=== PATIENT | female | born 1985 | race Caucasian/White ===

== ENCOUNTER 2020-02-05 18:43 | Emergency (ER) | payer OTHER, SELFPAY ==
[2020-02-05 18:48] VITALS: BP 130/86; PULSE 66; RESP 16; TEMP 36.3; O2SAT 99
--- NOTE | 2020-02-05 19:25 | PC.NURSE ---
During bedside handoff report, pt reported she was 11 weeks
--- NOTE | 2020-02-05 20:02 | ED.SKABFB ---
HPI - Skin/Abscess/Foreign Bdy General Chief complaint: Wound/Laceration Stated complaint: scalp wound Time Seen by Provider: 02/05/20 19:48 History of Present Illness HPI narrative: Painful bump to posterior scalp. Noticed it a few days ago. Getting larger. Mild pain in the left ear. Mild nausea. No fever Related Data Home Medications Medication Instructions Recorded Confirmed PNV cmb#95-ferrous fumarate-FA tablet PO 02/05/20 [] Allergies Allergy/AdvReac Type Severity Reaction Status Date / Time Sulfa (Sulfonamide Allergy Unknown Verified 02/05/20 18:52 Antibiotics) Review of Systems Review of Systems: All systems reviewed & are unremarkable except as noted in HPI and below Constitutional: Constitutional: Denies fever(s) ENT: Reports system reviewed and no additional complaints, except as documented Cardiovascular: Cardiovascular: Reports chest pain Respiratory: Respiratory: Denies dyspnea Gastrointestinal: Gastrointestinal: Reports nausea PMFSH Social History Social History Gender identity (if verbalized by the patient): Male Exam Const: General: healthy appearing, no acute distress and alert Orientation/consciousness: patient oriented x3 HENMT: Head: normal to inspection Other: 1 cm fluctuant lesion to posterior scalp. Neck: Neck: normal visual inspection and no lymphadenopathy Chest: Chest palpation & inspection: no tenderness Resp: Effort & Inspection: normal respiratory effort Auscultation: clear to auscultation bilaterally, no rales, no rhonchi and no wheezes Cardio: Jugular venous distension: no JVD Rate: regular rate Rhythm: regular rhythm Heart sounds: no murmurs GI: Inspection: non-distended GI Palp: Yes Soft to palpation and No Tenderness to palpation present (GI) Skin: General skin exam: normal color Neuro: General: patient oriented x3 and moves all extremities Speech: normal speech Extrem: General: no edema Psych: Appearance: well kempt Affect: normal affect Course Vital Signs Vital signs: Vital Signs Temperature 36.3 C L 02/05/20 18:48 Pulse Rate 66 02/05/20 18:48 Respiratory Rate 16 02/05/20 18:48 Blood Pressure 130/86 02/05/20 18:48 Pulse Oximetry 99 02/05/20 18:48 Temperature 36.3 C L 02/05/20 18:48 Pulse Rate 66 02/05/20 18:48 Respiratory Rate 16 02/05/20 18:48 Blood Pressure 130/86 02/05/20 18:48 Pulse Oximetry 99 02/05/20 18:48 Procedures Abscess I/D scalp: Local Anesthetic: none Technique: needle aspiration Amount of fluid expressed (mL): 1 Irrigation: No Packing used?: none I&D Results: Pus Discharge Plan Discharge Clinical Impression: Abscess Patient Disposition: Home, Self-Care Condition: Stable Instructions: Antibiotic Form, Abscess (ED) Prescriptions: New clindamycin HCl 300 mg capsule 300 mg PO Q8H Qty: 15 RF: 0 No Action PNV cmb#95-ferrous fumarate-FA [] 28 mg iron- 800 mcg Tablet PO RF: 0 Follow-up/Referrals: PHYSICIAN,SPACE BUYER [Primary Care Provider] - Discharge Date/Time: 02/05/20 20:41
[2020-02-05] MEDS: CLINDAMYCIN HCL 150 MG CAP 300 MG PO (20:16)
[2020-02-05] MEDS: ACETAMINOPHEN 500 MG TABLET 1000 MG (20:21)
== END 2020-02-05 20:41 | disposition home or self-care (01) ==
PROVIDERS: Emergency Provider Emergency Medicine
DX: L02.811 Cutaneous abscess of head [any part, except face] (principal)
CPT/HCPCS: 10160; 99283; A9270

== ENCOUNTER 2020-08-24 10:20 | Inpatient (IN) | payer OTHER, SELFPAY ==
[2020-08-24] VITALS (37 sets, daily range): BP systolic 112–135; BP diastolic 63–87; PULSE 70–99; RESP 16; TEMP 36.8; O2SAT 96–100; BMI 28.0
[2020-08-24] MEDS: LACTATED RINGERS 1,000 ML 125 ML IV CONT ×2 (12:53→13:35)
[2020-08-24] MEDS: AMPICILLIN 2 GM/NS 100 ML 2 GM/100 ML BAG IVPB (12:53)
--- NOTE | 2020-08-24 13:00 | WPDOBADMIT ---
Obstetrics - Admit Note Admission Note: record reviewed. Additions to the history and/or subsequent changes in the physical findings follow. 34 y/o at 39 2/7 weeks here with contractions. GBS pos. AVSS NST reactive TOCO: contractions every 3-4 min ABD soft, nontender, gravid, vertex EXT nontender Cervix 4/50/-2. AROM with clear fluid. Vertex. A: IUP at term with labor, GBS pos. P: Ampicillin. Anticipate .
--- NOTE | 2020-08-24 13:05 | WPDANESEPP ---
Anes - Eval Pre Procedure Procedure: labor epidural Date/Time: 08/24/20 13:05 Surgeon: jameson Pre Op Diagnosis: Contractions Patient Data Age: 34 Gender: F Height: Weight: Allergies Allergy/AdvReac Type Severity Reaction Status Date / Time bee venom protein (honey bee) Allergy Hives Verified 07/30/20 12:45 Sulfa (Sulfonamide Allergy Unknown Verified 07/30/20 12:44 Antibiotics) WASP VENOM Allergy Hives Uncoded 07/30/20 12:45 Home Medications Medication Instructions Recorded Confirmed Type PNV cmb#95-ferrous fumarate-FA tablet PO 02/05/20 History [] Patient hx anesthesia problems: none Family hx anesthesia problems: none PMFSH Family History Family History Father Hypertension Heart disease Hypothyroid Obesity Grandparent Hypertension Heart disease Sibling Hypertension Obesity Grandparent Cancer Hyperthyroidism Grandparent Cancer Mother Obesity Grandparent Alcoholism Social History Social History Substance use: never Gender identity (if verbalized by the patient): Male Spiritual care concerns: No Exam Day of Procedure 08/24/20 13:05 Patient weight: normal Heart: regular rate and rhythm Lungs: normal air movement Airway: Mallampati scale class 1 Neurological: alert and oriented
[2020-08-24 13:11] LABS: Basophils Percent Auto 0.2 % (0.2-1.2); Eosinophils Percent Auto 0.1 % (0-4.4); Hemoglobin 12.9 g/dL (12.0-15.0); Immature Granulocyte Absolute 0.08 K/mm3 (0.00-0.031); Immature Granulocyte Percent A 0.7 % (0-0.5); Lymphocytes Absolute Auto 1.64 K/mm3 (0.9-3.2); Lymphocytes Percent Auto 15.3 % (18.3-44.2); Mean Corpuscular HGB Conc 33.9 g/dl (32-36); Mean Corpuscular Hemoglobin 30.8 pg (26-34); Mean Corpuscular Volume 90.7 fl (80-100); Mean Platelet Volume 10.8 fl (7.4-10.4); Monocytes Absolute Auto 0.5 K/mm3 (0.1-0.6); Monocytes Percent Auto 4.9 % (2.6-8.5); Neutrophils Absolute Auto 8.4 K/mm3 (1.3-6.7); Neutrophils Percent Auto 78.8 % (45.5-73.1); Platelet Count Result 179 k/mm3 (150-375); Red Blood Count 4.19 M/mm3 (4.2-5.4); Red Cell Distribution Width 12.4 % (11.5-14.5); White Blood Count 10.7 K/mm3 (4.5-10.0)
[2020-08-24] MEDS: OXYTOCIN 30 UNITS/NS 500 ML 30 UNITS/500 ML BAG 999 UNITS IV CONT (15:06)
--- NOTE | 2020-08-24 15:21 | P.PCNOB_ITS ---
OB - Delivery Note Procedure Delivery date: 08/24/20 Procedure: Induction method: none Delivery augmentation: rupture of membranes Delivery monitor: external FHT and external uterine Route of delivery: Laceration Description: Perineal - 2nd Degree Delivery repair: vicryl (3-0) Quantitative Blood Loss (ml): 85 Anesthesia type: Epidural Disposition: PACU Complications: None Narrative: 34 y/o at 39 2/7 weeks gestation who presented to the hospital with contractions. Labor was diagnosed. She received ampicillin for GBS colonization. Amniotomy was performed with return of clear fluid. She received an epidural for pain control. Her labor progressed rapidly and her cervix dilated completely. She pushed with good effort and delivered the infant's head to the perineum, followed by the body. The nose and mouth were bulb suctioned. After a delay, the cord was clamped and cut. The infant was handed off the field. Cord blood was collected. The placenta delivered spontaneously and was grossly normal in appearance. The usual 3 vessel cord was noted. A second degree midline perineal laceration was sustained. This was reapproximated using 3 0 Vicryl in the usual layered fashion. Excellent hemostasis resulted as did excellent reapproximation of the normal anatomy. Needle and instrument counts were correct. The patient was taken to recovery room in stable condition. The went to the nursery in stable condition. I was present and scrubbed for the entire delivery. [place] [facility] Date of : 08/24/20 Time of : 15:01 Weeks of gestation at delivery: 39 Infant gender: Male Weight (pounds): 8 presentation: vertex position: Left Occiput Anterior Placenta delivery description: Spontaneous and Normal Configuration cord vessel description: 3 Vessels and Delayed Cord Clamping score one minute: 9 score five minutes: 9
--- NOTE | 2020-08-24 15:24 | P.DS_ITS ---
DS: Admitting Diagnosis Admitting Diagnosis Admitting Diagnosis: Labor GBS colonization DS: Discharge Diagnosis Discharge Diagnosis (1) (normal spontaneous vaginal delivery): Code(s): O80 - Encounter for full-term uncomplicated delivery Status: Acute (2) GBS (group B Streptococcus carrier), +RV culture, currently : Code(s): O99.820 - Streptococcus B carrier state complicating Status: Acute OB - DS: Summary OB Procedures : None OB Procedures Intrapartum: Spontaneous Vag Delivery OB Procedures: : None Time Spent with Patient Time attestation: Total time spent providing and/or coordinating discharge services: DS: Data Data Completed and Pending Labs on day of discharge: Labs from last 24 hours 08/24/20 08/24/20 08/24/20 13:04 13:04 13:04 WBC 10.7 H RBC 4.19 L Hgb 12.9 Hct 38.0 MCV 90.7 MCH 30.8 MCHC 33.9 RDW 12.4 Plt Count 179 MPV 10.8 H Immature Gran % (Auto) 0.7 H Neut % (Auto) 78.8 H Lymph % (Auto) 15.3 L [place] % (Auto) 4.9 Eos % (Auto) 0.1 Baso % (Auto) 0.2 Lymph # (Auto) 1.64 [place] # (Auto) 0.5 Eos # (Auto) 0.0 Baso # (Auto) 0.0 Abs Immat Gran (auto) 0.08 H Absolute Neuts (auto) 8.4 H Absolute Nucleated RBC 0.0 Nucleated RBC % 0.0 RPR Pending Blood Type B Positive Antibody Screen Negative Discharge Plan Discharge Attending physician on discharge: Negin Discharging Clinician: Ellis Kam Patient Disposition: Home, Self-Care Activity: pelvic rest Diet: regular Discharge Instructions: Call or return if temperature above 100.4? F, increased abdominal pain, increased vaginal bleeding or any new problems. Stand Alone Forms: General Discharge Information Follow-up/Referrals: Ellis Kam MD [Physician] - 6 Weeks Discharge Medications: New ibuprofen 600 mg tablet 600 mg PO Q6H PRN (Reason: cramps) Qty: 30 RF: 0 No Action PNV cmb#95-ferrous fumarate-FA [] 28 mg iron- 800 mcg Tablet 1 tablet PO DAILY RF: 0 Date of admission: 08/24/20 10:20 Primary Care Provider: PHYSICIAN,CREDIT OR LOANS OFFICER Admitting Provider: Ellis Kam Attending physician on admission: Ellis Kam Condition: Stable
[2020-08-24] MEDS: OXYTOCIN 30 UNITS/NS 500 ML 30 UNITS/500 ML BAG 125 UNITS IV CONT (15:47)
--- NOTE | 2020-08-24 18:28 | OBPPTRN ---
1803 Patient transferred to post room #279 via W/C. Support person present. Oriented to unit, room, information board, rooming in, admission packet and security measures. Patient verbalizes understanding.
[2020-08-24] MEDS: BENZOCAINE 20% AER SPR (*SP) 56 GM CAN 1 SPRAY TOPICAL (20:30)
[2020-08-24] MEDS: WITCH HAZEL 40 PADS 1 PAD TOPICAL (20:30)
[2020-08-24] MEDS: IBUPROFEN 600 MG TABLET PO (20:50)
[2020-08-25] MEDS: IBUPROFEN 600 MG TABLET PO ×3 (03:03→16:01)
[2020-08-25 05:10] LABS: Hematocrit 31.3 % (37.0-47.0); Hemoglobin 10.8 g/dL (12.0-15.0)
[2020-08-25 07:45] VITALS: BP 115/77; PULSE 60; RESP 18; TEMP 36.7; O2SAT 99
[2020-08-25] MEDS: MULTIVIT/MIN/PREN/FOL AC/IRON TABLET 1 TAB PO (08:46)
--- NOTE | 2020-08-25 08:57 | WPDANLDPN2 ---
Anes-Prog Note L&D Date/Time: 08/25/20 08:57 Comfortable throughout: labor and delivery Neuraxial method: epidural Epidural/Spinal procedure site: clean & non-tender Neuro status: Neuro function grossly intact. Cardiovascular status: normal Respiratory status: normal Airway patency: baseline Mental status: baseline Post-Op hydration status: normal Vital Signs: Last Vital Signs Temp 98.2 F 08/24/20 18:30 Pulse 70 08/24/20 18:30 Resp 16 08/24/20 18:30 BP 118/80 08/24/20 18:30 Pulse Ox 100 08/24/20 18:30 Pain score (VAS): 0/10 I/O: Intake & Output 08/24/20 08/25/20 08/25/20 23:59 07:59 15:59 Intake Total 1000 Output Total 100 Balance 900 Patient feedback: Patient satisfied with anesthetic care.
[2020-08-25 09:50] LABS: Rapid Plasma Reagin Non-Reactive (NonReactive)
--- NOTE | 2020-08-25 09:57 | PC.NURSE ---
Pt called me to the room and informed me that she just received a phone call from a clinic that her [id number] daughter tested positive for Covid. Pt states she was with her daughter early on 08/24 and her daughter is currently with the patient's mother. Told pt that I will inform the [employer] swim coach to get guidance for when pt goes home. Also, I called Sumeet Yun RN to inform her and to get guidance with pt's care. She stated that no changes in current Covid precautions is warranted.
--- NOTE | 2020-08-25 11:23 | PC.NURSE ---
Consulted with patient, reviewed feeding cues, frequencies, duration of feedings, feeding elimination flow sheet, and signs of adequate intake. Demonstrated stimulation techniques to wake for feeding. Assisted with to breast. Reviewed positioning/alignment, holding breast and asymmetrical latch on. was able to latch correctly. Infant nursed eagerly, with steady draws and frequent swallowing noted. Reviewed signs of a correct latch, effective nursing and suck swallow ratio. was able to maintain latch without discomfort to mother. Nipple care reviewed. Instructed mother to call out for RN assistance if she is unable to latch for feeding or she has discomfort with nursing. Instructed feeding should be initiated three hours from start of last feeding or if feeding cues are noted before. Mother voiced understanding of information shared.
--- NOTE | 2020-08-25 14:10 | PM.OBPNVD ---
OB - PN: Subj Subjective Date/time seen: 08/25/20 14:10 Narrative: Pain OK. Would like circumcision for son. OB - PN: Obj Data Labs CBC & Chem 7: 08/25/20 04:49 Labs: Laboratory Results - last 24 hr 08/24/20 08/24/20 08/25/20 13:04 13:04 04:49 Hgb 10.8 L Hct 31.3 L RPR Non-reactive Blood Type B Positive Antibody Screen Negative OB - PN A/P Plan Comments: A: PPD#1, doing well. P: Routine care. Reviewed circumcision. Exam Psych: Other: AVSS ABD soft, nontender, fundus firm EXT nontender
[2020-08-25 20:00] VITALS: BP 117/86; PULSE 62; RESP 16; TEMP 36.7; O2SAT 98
[2020-08-26] MEDS: IBUPROFEN 600 MG TABLET PO ×2 (00:37→06:44)
[2020-08-26] MEDS: MULTIVIT/MIN/PREN/FOL AC/IRON TABLET 1 TAB PO (06:44)
[2020-08-26 08:00] VITALS: BP 116/74; PULSE 66; RESP 18; TEMP 36.7; O2SAT 100
--- NOTE | 2020-08-26 08:19 | PC.NURSE ---
Mother verbalizes she is able to independently latch with appropriate positioning/alignment. She states she has minimal nipple discomfort, is feeding as required and waking to feed if needed. Infant has had 11 effective feedings in the past 24 hours, and is currently meeting outcomes for weight, output, jaundice and feeding frequencies. Mother states she feels confident to continue effective at home. Reviewed transition to breast milk, signs of adequate intake, and engorgement/relief. Instructed to call ICP if intake/output less than required. Reviewed community resources on the [facility] website and in the Mom/Baby guide. Information on outpatient services provided. Mother has no further questions at this time. Mom encouraged to call with next feeding to have latch assessed.
--- NOTE | 2020-08-26 09:28 | WPDANLDPN2 ---
Anes-Prog Note L&D Date/Time: 08/26/20 09:28 Comfortable throughout: labor and delivery Neuraxial method: epidural Epidural/Spinal procedure site: clean & non-tender Neuro status: Neuro function grossly intact. Cardiovascular status: normal Respiratory status: normal Airway patency: baseline Mental status: baseline Post-Op hydration status: normal Vital Signs: Last Vital Signs Temp 36.7 C 08/25/20 20:00 Pulse 62 08/25/20 20:00 Resp 16 08/25/20 20:00 BP 117/86 08/25/20 20:00 Pulse Ox 98 08/25/20 20:00 Pain score (VAS): 0 Patient feedback: Patient satisfied with anesthetic care.
--- NOTE | 2020-08-26 10:45 | PM.OBPNVD ---
OB - PN: Subj Subjective Date/time seen: 08/26/20 10:45 Narrative: Pain OK. Would like to go home. OB - PN: Obj Data Labs CBC & Chem 7: 08/25/20 04:49 OB - PN A/P Plan Comments: A: PPD#2, doing well. P: Home to f/u 6 weeks. Exam Psych: Other: AVSS ABD soft, nontender, fundus firm EXT nontender
== END 2020-08-26 11:59 | disposition home or self-care (01) | DRG 807 ==
LOC: ANHLDR 15:25 → ANHOB2 18:06
PROVIDERS: Admitting Provider Obstetrics & Gynecology; Visit Provider Obstetrics & Gynecology
DX: O62.3 Precipitate labor (principal); Z37.0 Single live birth; Z3A.39 39 weeks gestation of pregnancy; O99.824 Streptococcus B carrier state complicating childbirth; O70.1 Second degree perineal laceration during delivery
CPT/HCPCS: 36415; 85014; 85018; 85025; 86592; 86850; 86900; 86901; A9270; J0290; J2590; J2795; J7120

== ENCOUNTER 2024-08-21 18:50 | Emergency (ER) | payer BC, SELFPAY ==
--- NOTE | 2024-08-21 18:58 | ED_ITS ---
HPI - URI/Sore Throat General Chief Complaint: Upper Respiratory Infection Stated Complaint: Flu Symptoms Time Seen by Provider: 08/21/24 19:00 Source: patient Mode of arrival: ambulatory Limitations: no limitations History of Present Illness HPI Narrative: Cheryl is a 38-year-old female patient presenting to the clinic today with complaints of flu-like symptoms x1 day. She reports she has headache, cough, congestion, sinus drainage, and some shortness of breath on exertion. Denies any chest pain. Denies sore throat. No fevers, chills, or body aches MD elicited complaint: cough, rhinorrhea and nasal congestion Related Data Allergies Allergy/AdvReac Type Severity Reaction Status Date / Time bee venom protein (honey bee) Allergy Hives Verified 08/21/24 19:06 WASP VENOM Allergy Hives Uncoded 08/21/24 19:06 Review of Systems Review of Systems: Pertinent positives per HPI. Patient denies any fever, chills, rash, visual changes, dizziness, chest pain, palpitations, nausea, vomiting, diarrhea, constipation, abdominal pain, or any urinary issues. PMFSH Past Medical History Medical History Change in bowel habits BMI 22.0-22.9, adult Abdominal pain Family History Family History Father Hypertension Heart disease Hypothyroid Obesity Grandparent Hypertension Heart disease Sibling Hypertension Obesity Alcoholism Asthma Hypothyroid Grandparent Cancer Hyperthyroidism Grandparent Cancer Mother Obesity Grandparent Alcoholism Social History Social History Smoking status: Never smoker Alcohol intake: current Alcohol use details: rarely Substance use: never Substance use type: does not use Gender identity (if verbalized by the patient): Male Spiritual care concerns: No Comments At the time of my signature, I reviewed and agree with the nursing past medical, surgical, social, and family history. There is no relevant family history pertinent to the patient complaint. Exam Narrative: General: Well-developed, well nourished, in no apparent distress Head: Normocephalic, atraumatic Eyes: Pupils equally round and reactive to light bilaterally, EOM intact, sclera and conjunctive clear, no discharge, lids normal Ears: TMs intact and congested, ear canals clear, no drainage, grossly hearing normal. Nose: Nares patent, clear nasal discharge, mild inflammation, no sinus tenderness. Mouth: Oral pharynx without lesions or masses, good dentition, MMM. Postnasal drip Neck: Supple, trachea midline, no enlargement of anterior or posterior cervical nodes, no thyroid masses or goiter palpable. Cardio: Regular rate and rhythm, s1 and s2 normal, no murmur appreciated. Resp: Clear to auscultation bilaterally, no rhonchi, rales, wheezing or rubs Course Course Emergency Course: Portions of this record may have been created with voice recognition software. Level of Care: Express Care Visit Vital Signs Vital signs: Vital Signs Temperature 36.9 C 08/21/24 19:04 Pulse Rate 72 08/21/24 19:04 Respiratory Rate 16 08/21/24 19:04 Blood Pressure 117/82 08/21/24 19:04 Pulse Oximetry 100 08/21/24 19:04 Temperature 36.9 C 08/21/24 19:04 Pulse Rate 72 08/21/24 19:04 Respiratory Rate 16 08/21/24 19:04 Blood Pressure 117/82 08/21/24 19:04 Pulse Oximetry 100 08/21/24 19:04 Vital signs reviewed MDM - URI/Sore Throat MDM Narrative Medical decision making narrative: At the time of visit patient is resting comfortably on the exam table. Patient appears to be nontoxic. Labs: COVID and influenza testing was performed and was negative in the clinic today. Plan: I suspect patient has URI/viral syndrome. Will send in prescription for albuterol inhaler as needed for cough shortness of breath or wheeze. Supportive measures were discussed with the patient and they voiced understanding discharge instructions and agrees to treatment plan. Return precautions reviewed Differential Diagnosis Differential diagnosis: Likely upper respiratory infection, otitis media, sinusitis, viral infection, bronchitis, influenza, pharyngitis and other (COVID) Lab Data Labs: Lab Results 08/21/24 Range/Units 19:18 POC Influenza A Ag Negative (Negative) POC Influenza B Ag Negative (Negative) POC SARS CoV-2 Ag Negative (Negative) Discharge Plan Discharge Clinical Impression: Viral infection Upper respiratory infection Qualifiers: URI type: unspecified URI Qualified Code(s): J06.9 - Acute upper respiratory infection, unspecified Patient Disposition: Home, Self-Care Condition: Stable Instructions: Antibiotic Form, Viral Syndrome (ED), Cold Symptoms (ED) Additional Instructions: COVID and influenza testing was negative in the clinic today. No sign of bacterial infection. May take DayQuil/NyQuil for cold/flu symptoms Take prescription medications only as prescribed-albuterol inhaler as needed for cough, shortness of breath, or wheezing Increase fluids and stay well hydrated Tylenol/motrin for pain/fever Flonase and OTC antihistamines as directed Vicks vapor rub to open sinuses Sinus rinses for congestion Cepacol spray, cough drops, throat lozenges, warm tea with honey/lemon, gargle salt water to soothe throat BRAT diet for diarrhea Clear liquids x 24 hours then advance as tolerated for nausea/vomiting Go to the ED if you develop a worsening in your condition- high fever not controlled by Tylenol or Motrin, dehydration, weakness, lethargy, shortness of breath, or chest pain. Follow up with your PCP in 3-5 days if symptoms persist. Patient Language: Senegalese Prescriptions: New albuterol sulfate 90 mcg/actuation HFA aerosol inhaler 2 puff inhalation Q4-6H PRN (Reason: shortness of breath or wheezing) 30 Days Qty: 8.5 0RF Follow-up/Referrals: Manpreet Faria MD [Primary Care Provider] - Stand Alone Forms: Work/School Release IP Time of Disposition: 19:18 Quality NIHSS Nursing Documentation ED NIHSS nursing documentation: reviewed/agree
[2024-08-21 19:04] VITALS: BP 117/82; PULSE 72; RESP 16; TEMP 36.9; O2SAT 100
[2024-08-21 19:18] LABS: EDCOVIDSCREEN Negative (Negative); EDINFLUASCREEN Negative (Negative); EDINFLUBSCREEN Negative (Negative)
== END 2024-08-21 19:23 | disposition home or self-care (01) ==
PROVIDERS: Emergency Provider Nurse Practitioner Family; PCP Family Medicine
DX: B34.9 Viral infection, unspecified (principal); J06.9 Acute upper respiratory infection, unspecified; Z20.822 Contact with and (suspected) exposure to COVID-19
CPT/HCPCS: 87426; 87804; 99213; G0463

== ENCOUNTER 2024-09-16 08:25 | Outpatient (CLI) | payer BC, SELFPAY ==
--- NOTE | ~2024-09-16 | US_ITS ---
EXAMINATION: US abdomen complete DATE: 09/16/2024 08:42 INDICATION: Generalized abdominal pain. TECHNIQUE: Multiple grayscale and Doppler ultrasound images of the abdomen were obtained. COMPARISON: None FINDINGS: The visualized portions of the head, body, and tail of the pancreas are normal. The liver i s normal without focal lesion. There is normal flow in main portal vein. The gallbladder is normal in size. No gallstones or gallbladder wall thickening. There is no sonographic Shen's sign. The commo n duct is normal and measures 3 mm. Right kidney is normal. Left kidney is normal. The spleen is norm al in size. Abdominal aorta is normal in caliber. Inferior vena cava is normal. IMPRESSION: 1. Normal complete abdomen ultrasound. Reviewed, dictated and finalized at location B. TMENT RENTAL CLERK
== END 2024-09-16 08:26 | disposition home or self-care (01) ==
LOC: GOSHIMG 08:26
PROVIDERS: PCP Family Medicine; Visit Provider Family Medicine
DX: R10.84 Generalized abdominal pain (principal)
CPT/HCPCS: 76700

== ENCOUNTER 2024-10-13 01:45 | Day surgery (SDC) | payer BC, SELFPAY ==
[2024-09-22 14:06] VITALS: BMI 21.7
--- OUTSIDE RECORDS SUMMARY | 2024-10-13 01:48 | XMS_ITS | Clinical Summary ---
Author Organization [facility] Address [address] [place] [id number] Care Team Providers Care Epic Prelude Analyst Name Role Phone Unavailable Primary Care Provider Unavailabl e Social History Tobacco Use Types Packs/Day Years Used Date Smoking Tobacco: Never Assessed Comments Unknown Sex and Gender Information Value Date Recorded Sex Assigned at Not on file Legal Sex Female 6:18 PM CDT Gender Identity Not on file Sexual Orientation Not on file Plan of Treatment Health Maintenance Due Date Last Done Comments Cervical Cancer Screening Pa p Smear (Age 30 to 64) Every 3 Years 1984 Annual Physical 11/14/1987 Hepatitis C 2002 DTaP, Tdap and Td Vaccines ( 1 - Tdap) 11/14/2003 Hepatitis B Vaccines (1 of 3 - 19+ 3-dose series) 11/14/2003 Cervical Cancer Screening Pa p with HPV Testing (Age 30 to 64) Every 5 Years 2014 Cervical Cancer Screening with HPV 2014 COVID-19 Vaccine (2023-2 5 season) 2024 Influenza Adult (#1) 2024 HPV Vaccines Aged Out No longer eligi ble based on patient's age to complete this topic Meningococcal B Vaccine Aged Out No l onger eligible based on patient's age to complete this topic Meningococcal Vaccine Aged Out No kamaljit christian eligible based on patient's age to complete this topic Pneumococcal Vaccine: Pediat rics (0 to 5 Years) and At-Risk Patients (6 to 64 Years) Aged Out No longer eligible b ased on patient's age to complete this topic RSV Immunizations Under 20 Months Aged Out No longer eligible based on patient's age to complete this topic
--- OUTSIDE RECORDS SUMMARY | 2024-10-13 01:49 | XMS_ITS | Clinical Summary ---
Author Organization [facility] Address [address] [place] [address] Care Team Providers Care Printing Sign Machine Operator Name Role Phone Nathanael Victoria MD Primary Care Provider [phone] Allergies Active Allergy Reactions Criticality Noted Date Comments Other Rash,Itching Medium 12/21/2017 Topical sulfa Medications No known medications Active Problems Problem Noted Date Diagnosed Date Dizziness 08/10/2021 Assessment & Plan (08/14/2021 12:21 PM ROUNDER AND BACKER): Patient reports a positive family history of Chiari 1 malformation, which could possibly explain the dizziness with physical activity, although the rest of her neurologic exam is unremarkable and not suggestive of any acute pathology. Consider MRI for rule out. 48 hour holter monitor to rule out cardiac etiology. Follow up as scheduled. Left ear hearing loss 07/20/2021 Assessment & Plan (07/20/2021 6:10 PM ROUNDER AND BACKER): Week has been ongoing for 2-3 weeks. Patient had upper respiratory symptoms with this however the only symptoms left now is decreased hearing from the left ear. There is some fluid behind the left ear. However otherwise the ear exam is unremarkable. States will start steroid pack. Advised to make an appointment with Dr. Krishnamurthy. If symptoms worsen to contact the office or go to the ER [facility] health care 06/11/2021 Assessment & Plan (06/11/2021 10:18 AM CDT): Preventative health care discussed including routine vaccinations and age- appropriate screenings. Discussed continued importance of diet and physical activity. Medication reconciliation performed with patient. Medications, past medical history, surgical history, allergies, and family history reviewed. CBC, CMP, lipid panel, and hemoglobin A1C ordered. Tentative plan for follow up in 07/2021 Hand dermatitis 08/25/2019 Assessment & Plan (08/25/2019 12:35 PM ROUNDER AND BACKER): Will try topicort cream BID, if no improvement in 1 week [address] refer to Dr. Smallwood (derm) Threatened labor 12/21/2017 Immunizations Immunization Administration Dates Next Due Influenza, Unspecified 06/04/2021,2018,05/24/2018,05/21/2018(Deferred: Patient Refused) Tdap 09/27/2017 Family History Medical History Relation Name Comments Alcohol abuse Brother 1 Ang Velarde Hypertension Brother 1 Ang Velarde Hyperlipidemia Brother 2 Live Velarde Hypertension Brother 2 Live Velarde Obesity Brother 2 Live Ricardoannisilva Rashes / Skin problems Brother 2 Live Kabbsilva Asthma Brother 3 Lupillo Kabbes Arthritis Father Dad ABDELRAHMAN disease Father Dad Gout Father Dad Hyperlipidemia Father Dad Hypertension Father Dad Obesity Father Dad Alcohol abuse Maternal Grandfather Bucky Eugenio Cancer Maternal Grandmother Amadna Becker Cervical cancer Maternal Grandmother Amanda Becker Arthritis Mother Mom ABDELRAHMAN disease Mother Mom Hypertension Mother Mom Obesity Mother Mom Cancer Paternal Grandfather Edison Kabbes Heart attack Paternal Grandfather Edison Kabbes Hyperlipidemia Paternal Grandfather Edison Kabbes Hypertension Paternal Grandfather Edison Kabbes Obesity Paternal Grandfather Edison Kabbes Breast cancer Paternal Grandmother Tabatha Kabbes Cancer Paternal Grandmother Tabatha Kabbes Depression Paternal Grandmother Tabatha Kabbes Relation Name Status Comments Brother 1 Ang Velarde Alive Brother 2 Live Velarde Alive Brother 3 Lupillo Kabbes Alive Father Dad Alive Maternal Grandfather Bucky Becker Maternal Grandmother Amandabrett Becker Mother Mom Alive Paternal Grandfather Edison Ricardobbes Paternal Grandmother Tabatha Kabbes Social History Tobacco Use Types Packs/Day Years Used Date Smoking Tobacco: Never Smokeless Tobacco: Never Alcohol Use Standard Drinks/Week Comments Yes 1 (1 standard drink = 0.6 oz pur e alcohol) AUDIT-C Answer Date Recorded Frequency of Alcohol Consumption 2-4 times a mon 04/23/2019 Average Number of Drinks 1 or 2 019 Frequency of Binge Drinking Not on file 03/28 PHQ-2 Answer Date Recorded PHQ-2 Total Score (If total score is 3 or more points, staff should administer the PHQ-9) 0 07/28/2022 Personal Safety Answer Date Recorded Getting School Help Needed Not on file 08/31 Comments No Sex and Gender Information Value Date Recorded Sex Assigned at Not on file Legal Sex Female 11:00 AM ROUNDER AND BACKER Gender Identity Female 02/19/2022 6:47 PM CDT Sexual Orientation Straight 03/16/2021 1: 35 PM CDT 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 file Obstetrics History Last Filed Vital Signs Vital Sign Reading Time Taken Comments Blood Pressure 120/78 07/28/2022 10:05 AM ROUNDER AND BACKER Pulse 76 07/28/2022 10:05 AM ROUNDER AND BACKER Temperature 36.9 C (98.5 F) 11/04/2021 4:26 PM ROUNDER AND BACKER Respiratory Rate 16 11/04/2021 4:26 PM ROUNDER AND BACKER Oxygen Saturation 97% 07/28/2022 10:05 AM ROUNDER AND BACKER Inhaled Oxygen Concentration - - Weight 56.2 kg (124 lb) 10/06/2022 3:22 PM ROUNDER AND BACKER Height 162.6 cm (5' 4 ) 10/06/2022 3:22 PM ROUNDER AND BACKER Body Mass Index 21.28 10/06/2022 3:22 PM ROUNDER AND BACKER Plan of Treatment Health Maintenance Due Date Last Done Comments Hepatitis C Screening 1984 Hepatitis B Screening 2002 Cervical Cancer Screening 09/27/2019 09/27/2018 Depression Screening 07/28/2023 07/28/2022, 06/09/2021, 02/04/2021, Additional history exists Regular Well Visit/Exam 18-64 07/28/2023 07/28/2022, 06/09/2021, 04/23/2019, Additional history exists Covid-19 Vaccine () 04/27/2024 05/25/2021, 10/07/2020, 09/16/2020 Influenza Vaccine (#1) 2024 2, 06/04/2021, 05/27/2019, Additional history exists DTaP/Tdap/Td Vaccine (2 - Td or Tdap) 09/27/2027 09/27/2017 HPV Vaccines Aged Out No longer eligi ble based on patient's age to complete this topic Pneumococcal vaccine <65 Aged Out No longer eligible based on patient's age to complete this topic Varicella Vaccines Discontinued Procedures Procedure Name Priority Date/Time Associated Diagnosis Comments PAP SMEAR WITH HPV Routine 09/27/2018 from Last 3 Months or Most Recently Relevant to Health Maintenance Results * PAP SMEAR WITH HPV (09/27/2018) Pap smear Normal Historical Provider HEALTH MAINTENANCE Final Result from Last 3 Months or Most Recently Relevant to Health Maintenance Insurance [facility] EMPL[employer] Address: [facility] [id number] [place] [address] [facility] [employer] Address: [facility] [id number] [place] [address] [employer] [facility] [employer] Address: [facility] [id number] [place] [address] Care Teams Printing Sign Machine Operator Relationship Specialty Start Date End Date Nathanael Victoria MD PCP - General Internal Medicine 07/28/22
--- OUTSIDE RECORDS SUMMARY | 2024-10-13 01:49 | XMS_ITS | Referral Summary ---
Author Organization [facility] Address [address] [place] [address] Care Team Providers Care Chief Dietitian Name Role Phone Nathanael Victoria MD Primary Care Provider [phone] Allergies Active Allergy Reactions Criticality Noted Date Comments Other Rash,Itching Medium 12/21/2017 Topical sulfa Medications No known medications Active Problems Problem Noted Date Diagnosed Date Dizziness 08/10/2021 Assessment & Plan (08/14/2021 12:21 PM MUMPS DEVELOPER): Patient reports a positive family history of [...] 07/20/2021 Assessment & Plan (07/20/2021 6:10 PM MUMPS DEVELOPER): Week has been ongoing for 2-3 weeks. [...] the office or go to the ER [facility] health care 06/11/2021 Assessment & Plan [...] 08/25/2019 Assessment & Plan (08/25/2019 12:35 PM MUMPS DEVELOPER): Will try topicort cream BID, if no improvement in 1 week will refer to Dr. Smallwood (derm) Threatened labor 12/21/2017 Immunizations Immunization Administration Dates Next Due Influenza, Unspecified 06/04/2021,2018,05/24/2018,05/21/2018(Deferred: Patient Refused) Tdap 09/27/2017 Social History Tobacco Use Types Packs/Day Years Used Date Smoking Tobacco: Never Smokeless Tobacco: Never Alcohol Use Standard Drinks/Week Comments Yes 1 (1 standard drink = 0.6 oz pur e alcohol) AUDIT-C Answer Date Recorded Frequency of Alcohol Consumption 2-4 times a mon th 04/23/2019 Average Number of Drinks 1 or [...] on file Legal Sex Female 11:00 AM MUMPS DEVELOPER Gender Identity Female 02/19/2022 6:47 PM CDT Sexual Orientation Straight 03/16/2021 1: 35 PM CDT 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 file Last Filed Vital Signs Vital Sign Reading Time Taken Comments Blood Pressure 120/78 07/28/2022 10:05 AM MUMPS DEVELOPER Pulse 76 07/28/2022 10:05 AM MUMPS DEVELOPER Temperature 36.9 C (98.5 F) 11/04/2021 4:26 PM MUMPS DEVELOPER Respiratory Rate 16 11/04/2021 4:26 PM MUMPS DEVELOPER Oxygen Saturation 97% 07/28/2022 10:05 AM MUMPS DEVELOPER Inhaled Oxygen Concentration - - Weight 56.2 kg (124 lb) 10/06/2022 3:22 PM MUMPS DEVELOPER Height 162.6 cm (5' 4 ) 10/06/2022 3:22 PM MUMPS DEVELOPER Body Mass Index 21.28 10/06/2022 3:22 PM MUMPS DEVELOPER Plan of Treatment Not on file Procedures Procedure Name Priority Date/Time Associated Diagnosis Comments PAP SMEAR WITH HPV Routine 09/27/2018 from Last 3 Months or Most Recently Relevant to Health Maintenance Results * PAP SMEAR WITH HPV (09/27/2018) Pap smear Normal Historical Provider MD HEALTH MAINTENANCE Final Result from Last 3 Months or Most Recently Relevant to Health Maintenance Insurance [employer] [facility] PLANS Address: [facility] [id number] [place] [id number] [employer] PL[employer] Address[facility] [id number] [place] [address] [employer] Address: [facility] [id number] [place] [address] Care Teams Chief Dietitian Relationship Specialty Start Date End Date Nathanael Victoria MD PCP - General Internal Medicine 07/28/22
--- OUTSIDE RECORDS SUMMARY | 2024-10-13 01:49 | XMS_ITS | Patient Health Summary ---
Author Organization [facility] [place] Address [address] [place] [address] Care Team Providers Care Lining Cementer Name Role Phone Unavailable Primary Care Provider Unavailabl e Note from [facility],non-owned Affiliates and Associated Physician Practices is amultiple site organization consisting of ambulatory clinics and hospital sitesin [place], [place], [place] and [place]. This disclosure is being madepursuant to the Care Everywhere program and may not contain all information available regarding this patient. Last updated 18.[facility] Allergies * Sulfa Drugs(Rash) -Medium Criticality Medications * Be aware that medications may not be up to date on this document. Alwaysverify current medications with the patient. * Vit-Fe Fumarate-FA ( VITAMIN) 28-0.8 MG tablet Take 1 tablet by mouth once daily * raNITIdine (ZANTAC) 150 MG capsule Take 150 mg by mouth once daily as needed for Heartburn * ibuprofen (MOTRIN) 600 MG tablet Take 600 mg by mouth every 6 hours as needed for Pain Active Problems Problem Noted Date Diagnosed Date Threatened labor 12/21/2017 Social History Tobacco Use Types Packs/Day Years Used Date Smoking Tobacco: Never Smokeless Tobacco: Never Tobacco Cessation:Counseling Given: No Alcohol Use Standard Drinks/Week Comments No 0 (1 standard drink = 0.6 oz pur e alcohol) Sex and Gender Information Value Date Recorded Sex Assigned at Female 10/07/2021 12:26 PM SHIPPING HELPER Gender Identity Female 10/07/2021 12:26 PM SHIPPING HELPER Sexual Orientation Not on file Last Filed Vital Signs Vital Sign Reading Time Taken Comments Blood Pressure 121/72 12/23/2017 11:10 AM CDT Pulse 55 12/23/2017 11:10 AM CDT Temperature 36.6 C (97.9 F) 12/23/2017 11:10 AM CDT Respiratory Rate 16 12/23/2017 11:10 AM CDT Oxygen Saturation 100% 12/23/2017 11:10 AM CDT Inhaled Oxygen Concentration - - Weight 72.3 kg (159 lb 6.4 oz) 12/21/2017 9:22 P M CDT Height 162.6 cm (5' 4 ) 12/21/2017 9:22 PM CDT Body Mass Index 27.36 12/21/2017 9:22 PM CDT Procedures * LAB RESULTS ORDER(Performed 01/12/2018) * IMAGING/RADIOLOGY/XRAY RESULTS ORDER(Performed 12/24/2017) * HGB HCT PANEL(Performed 12/23/2017) * NEURAXIAL BLOCK(Performed 12/22/2017) * BLOOD TYPE VERIFICATION(Performed 12/22/2017) * TYPE + SCREEN PANEL(Performed 12/21/2017) * COMPREHENSIVE METABOLIC PANEL(Performed 12/21/2017) Performed for Threatened labor (HCC) * CBC W AUTO DIFFERENTIAL(Performed 12/21/2017) Performed for Threatened labor (HCC) * PROTEIN CREATININE RATIO URINE RANDOM PNL(Performed 12/21/2017) Performed for Threatened labor (HCC) * URINE MICROSCOPIC ONLY REFLEX TO CULTURE(Performed 12/21/2017) Performed for Threatened labor (HCC) * URINALYSIS REFLEX MICROSCOPIC REFLEX CULTURE(Performed 12/21/2017) Performed for Threatened labor (HCC) * CULTURE URINE(Performed 12/21/2017) Performed for Threatened labor (HCC) Results * LAB RESULTS ORDER (01/12/2018 1:56 AM CDT) Narrative 01/12/2018 1:56 AM CDT Ordered by an unspecified provider. Scanned Document LAB - THERAPEUTIC DR UG MONITORING ORDERABLES * IMAGING/RADIOLOGY/XRAY RESULTS ORDER (12/24/2017 8:55 PM CDT) Anatomical Region Laterality Modality Other Narrative 12/24/2017 8:55 PM CDT Ordered by an unspecified provider. Scanned Document IMAGING * (ABNORMAL) HGB HCT PANEL (12/23/2017 5:11 AM CDT) Hemoglobin 11.6(L) 12.0 - 15.6 gm/dL 12/23/2017 5:36 AM CDT [facility] Hematocrit 35.2(L) 35.9 - 45.5 % 12/23/2017 5:36 AM CDT [facility] Blood BLOOD SPECIMEN / Unknown Lab Venipuncture / Unknown 12/23/2017 5:11 AM CDT 12/23/2017 5:28 AM CDT Gwen Lee MD LAB - HEMATOLOGY ORD ERABLES [facility] [address] [id number] * NEURAXIAL BLOCK (12/22/2017 6:41 AM CDT) Narrative Chase Vo MD - 12/22/2017 6:41 AM CDT Rafael Hopper APRN-PSYCHOSOCIAL REHABILITATION COUNSELOR 12/22/2017 2:55 AM Neuraxial Block Note Procedure Name: Neuraxial Block Patient Location: OB Pre-Procedure: Indications: at patient's request Pre-Anesthetic Checklist: Patient identified, IV Checked, Risks and benefits discussed, Surgical consent verified, Monitors and equipment, Site examined, Pre-op evaluation done, Time-out performed, Informed consent obtained, Questions answered/anesthesia questions answered and Allergies reviewed Anticoagulation/ Anti-thrombosis status confirmed? Yes Monitors: BP, continuous pluse ox, EKG and End tidal CO2 Patient Condition: awake Patient Position: sitting Procedure: Block Type: Epidural Prep: Betadine Sterile Field: mask, cap/hat, sterile established and sterile gloves Approach: midline Skin localized with: lidocaine 1%, 3 mL Epidural Block: Is this procedure for postop pain? No Needle Type: Tuohy Needle gauge: 18 G Needle length: 90 mm Placement Site: L3-L4 Number of Attempts: 1 Loss of Resistance: 5 saline Catheter length at skin (cm): 12 CSF Aspirated from catheter: No Blood Aspirated: No Test Dose: lidocaine 1.5% with 1-200,000 epinephrine 3 mL at 12/22/2017 1:56 AM Test Dose Response: No Epidural Infusion Medications: Bupivacaine: 0.125% with 2mcg/ml Fentanyl started at, 250 cc (mL) at 12 mL/hr Degree of difficulty: none Procedure Tolerance: tolerated well Sensory Level: T6 Position post procedure: left uterine displacement Vital Signs: Vital signs moniitored and stable throughout. See nursing vitals flowsheet for details. Start Time: 12/22/2017 1:47 AM End Time: 12/22/2017 1:56 AM Total Time: 9 Staff: Anesthesia Provider: RAFAEL HOPPER Chase Vo MD GENERAL ANESTHESIA ORDERABLES * BLOOD TYPE VERIFICATION (12/22/2017 1:21 AM CDT) ABO B 12/22/2017 1:52 AM CDT [facility] Rh Type Positive 12/22/2017 1:52 AM CDT [facility] Blood Bank BLOOD SPECIMEN / Unknown Lab Venipuncture / Unknown 12/22/2017 1:21 AM CDT 12/22/2017 1:21 AM CDT Ellis Kam MD LAB - BLOOD BANK ORD ERABLES Performing Organization Address City/[facility]/ZIP Co de Phone Number [facility] [address] [phone] * TYPE + SCREEN PANEL (12/21/2017 11:28 PM CDT) ABO B 12/22/2017 12:58 AM CDT [facility] Rh Type Positive 12/22/2017 12:58 AM CDT [facility] Comment:History checked. Col lect retype. Antibody Screen Negative 12/22/2017 12:58 AM CDT [facility] Blood Bank BLOOD SPECIMEN / Unknown Venipuncture / Unknown 12/21/2017 11:28 PM CDT 12/22/2017 12:00 AM CDT Gwen Lee MD LAB - BLOOD BANK ORD ERABLES Performing Organization Address City/[facility]/ZIP Co de Phone Number [facility] [address] [phone] * (ABNORMAL) CBC W AUTO DIFFERENTIAL (12/21/2017 10:16 PM CDT) [facility] Signature WBC 11.8(H) 4.4 - 10.7 x10E9/L 12/21/2017 10:40 PM CDT [facility] WBC Corrected x10E9/L 12/21/2017 10:40 PM CDT [facility] RBC 3.97 3.80 - 5.20 x10E12/L 12/21/2017 10:40 PM CDT [facility] Hemoglobin 12.4 12.0 - 15.6 gm/dL 12/21/2017 10:40 PM CDT [facility] Hematocrit 35.9 35.9 - 45.5 % 12/21/2017 10:40 PM CDT [facility] MCV 90.4 80.7 - 98.3 fl 12/21/2017 10:40 PM CDT [facility] MCH 31.2 26.7 - 34.0 pg 12/21/2017 10:40 PM CDT [facility] MCHC 34.5 30.8 - 35.9 gm/dL 12/21/2017 10:40 PM CDT [facility] Platelet Count 185 153 - 416 x10E9/L 12/21/2017 10:40 PM CDT [facility] RDW-CV 12.6 12.1 - 14.9 % 12/21/2017 10:40 PM CDT [facility] MPV 10.6 9.4 - 12.9 fl 12/21/2017 10:40 PM [facility] Neutrophils % 77.3(H) 44.0 - 73.0 % 12/21/2017 10:40 PM CDT [facility] Lymphocytes % 15.5(L) 20.0 - 43.0 % 12/21/2017 10:40 PM CDT [facility] Monocytes % 5.9 5.0 - 13.0 % 12/21/2017 10:40 PM CDT [facility] Eosinophils % 0.3 0.0 - 6.0 % 12/21/2017 10:40 PM CDT [facility] Basophils % 0.2 0.0 - 2.0 % 12/21/2017 10:40 PM CDT [facility] Immature Granulocytes 0.8 0 - 1 % 12/21/2017 10:40 PM CDT [facility] Neutrophil Absolute 9.15(H) 2.01 - 7.14 x10E9/L 12/21/2017 10:40 PM CDT [facility] Lymphocytes Absolute 1.84 1.07 - 3.94 x10E9/L 12/21/2017 10:40 PM CDT [facility] Monocytes Absolute 0.70 0.26 - 1.07 x10E9/L 12/21/2017 10:40 PM CDT [facility] Eosinophils Absolute 0.03 0 - 0.47 x10E9/L 12/21/2017 10:40 PM CDT [facility] Basophils Absolute 0.02 0 - 0.08 x10E9/L 12/21/2017 10:40 PM CDT [facility] Immature Granulocytes Absolute 0.10(H) 0.00 - 0.06 x10E9/L 12/21/2017 10:40 PM CDT [facility] nRBC Auto 0 /100 WBC 12/21/2017 10:40 PM CDT [facility] Blood BLOOD SPECIMEN / Unknown Venipuncture / Unknown 12/21/2017 10:16 PM CDT 12/21/2017 10:34 PM CDT Gwen Lee MD LAB - HEMATOLOGY ORD ERABLES [facility] [address] [place] [address] * (ABNORMAL) COMPREHENSIVE METABOLIC PANEL (12/21/2017 10:16 PM CDT) [facility] Glucose 80 74 - 106 mg/dL 12/21/2017 11:01 PM CDT [facility] Sodium 137 136 - 145 mmol/L 12/21/2017 11:01 PM CDT [facility] Potassium 3.4(L) 3.5 - 5.1 mmol/L 12/21/2017 11:01 PM CDT [facility] Chloride 107 98 - 107 mmol/L 12/21/2017 11:01 PM CDT [facility] CO2 22 22 - 31 mmol/L 12/21/2017 11:01 PM CDT [facility] Calcium 8.5 8.5 - 10.1 mg/dL 12/21/2017 11:01 PM CDT [facility] Anion Gap 8 8 - 16 mmol/L 12/21/2017 11:01 PM CDT [facility] BUN 9 7 - 21 mg/dL 12/21/2017 11:01 PM T [facility] Creatinine 0.61 0.50 - 1.30 mg/dL 12/21/2017 11:01 PM [facility] Alkaline Phosphatase 147(H) 38 - 126 U/L 12/21/2017 11:01 PM [facility] ALT 24 13 - 61 U/L 12/21/2017 11:01 PM [facility] AST 27 5 - 40 U/L 12/21/2017 11:01 PM [facility] Protein Total 6.5 6.4 - 8.2 gm/dL 12/21/2017 11:01 PM [facility] Albumin 2.7(L) 3.4 - 5.0 gm/dL 12/21/2017 11:01 PM [facility] Bilirubin Total 0.4 0.2 - 1.0 mg/dL 12/21/2017 11:01 PM [facility] eGFR by MDRD >60 >60 mL/min/1.7 3m2 12/21/2017 11:01 PM [facility] eGFR by MDRD >60 >60 mL/min/1.7 3m2 12/21/2017 11:01 PM [facility] Blood BLOOD SPECIMEN / Unknown Venipuncture / Unknown 12/21/2017 10:16 PM CDT 12/21/2017 10:34 PM CDT Gwen Lee MD LAB - CHEMISTRY [facility] Organization Address City/State/[facility] Co de Phone Number [facility] [address] [place], [place] [id number] * PROTEIN CREATININE RATIO URINE RANDOM PNL (12/21/2017 10:10 PM CDT) Protein Urine 7.7 mg/dL 12/21/2017 11:07 PM [facility] Creatinine Urine 26 mg/dL 12/21/2017 11:07 PM [facility] Protein/Creatin ine Ratio Urine 0.30 12/21/2017 11:07 PM T [facility] Urine URINE SPECIMEN OBTAINED BY CLEAN CATCH PROCEDURE / Unknown Collection / Unknown 12/21/2017 10:10 PM CDT 12/21/2017 10:33 PM CDT Gwen Lee MD LAB - URINE CHEMISTR Y ORDERABLES Performing Organization Address [facility] Co de Phone Number [facility] [address] [place] [address] * (ABNORMAL) URINE MICROSCOPIC ONLY REFLEX TO CULTURE (12/21/2017 10:09 PM CDT) Reflex Status Culture to follow 12/21/2017 10:45 PM CDT [facility] RBC UA 0-5 0-5, None Seen # /hpf 12/21/2017 10:45 PM CDT [facility] WBC UA 0-5 0-5, None Seen # /hpf 12/21/2017 10:45 PM CDT [facility] Bacteria UA 1+(A) None Seen 12/21/2017 10:45 PM CDT [facility] Squamous Epithelial Cells 0-2 None Seen, 0-2, 3-5 /hpf 12/21/2017 10:45 PM CDT [facility] Mucus UA 1+ /LPF 12/21/2017 10:45 PM CDT [facility] Hyaline Casts 0-2 None Seen, 0-2 # /lpf 12/21/2017 10:45 PM CDT [facility] Urine URINE SPECIMEN OBTAINED BY CLEAN CATCH PROCEDURE / Unknown Collection / Unknown 12/21/2017 10:09 PM CDT 12/21/2017 10:33 PM CDT Narrative [facility] - 12/21/2017 10:45 PM CDT Gwen Lee MD LAB - URINALYSIS ORD ERABLES Performing Organization Address [facility]/ZIP Co de Phone Number [facility] [address] [place], [place] [phone] * (ABNORMAL) URINALYSIS REFLEX MICROSCOPIC REFLEX CULTURE (12/21/2017 10:09 PM CDT) Color UA Straw Straw, Yellow 12/21/2017 10:45 PM CDT [facility] Clarity UA Clear Clear 12/21/2017 10:45 PM CDT [facility] Glucose UA Negative Negative 12/21/2017 10:45 PM CDT [facility] Bilirubin UA Negative Negative 12/21/2017 10:45 PM CDT [facility] Ketone UA Negative Negative 12/21/2017 10:45 PM CDT [facility] Specific [place] UA 1.005 1.005 - 1.030 12/21/2017 10:45 PM CDT [facility] Blood UA 1+(A) Negative 12/21/2017 10:45 PM CDT [facility] pH UA 7.0 5.0 - 8.0 pH 12/21/2017 10:45 PM CDT [facility] Protein UA Negative Negative 12/21/2017 10:45 PM CDT [facility] Urobilinogen UA Negative Negative mg/dL 12/21/2017 10:45 PM CDT [facility] Nitrite UA Negative Negative 12/21/2017 10:45 PM CDT [facility] Leukocyte UA 1+(A) Negative 12/21/2017 10:45 PM CDT [facility] Urine Microscopy Urine microscopy to follow 12/21/2017 10:45 PM CDT [facility] Reflex Status Culture to follow 12/21/2017 10:45 PM CDT [facility] Urine URINE SPECIMEN OBTAINED BY CLEAN CATCH PROCEDURE / Unknown Collection / Unknown 12/21/2017 10:09 PM CDT 12/21/2017 10:33 PM CDT Narrative [facility] - 12/21/2017 10:45 PM CDT Gwen Lee MD LAB - URINALYSIS ORD ERABLES Performing Organization Address City/[facility] Co de Phone Number [facility] [address] [place], [place] [phone] * CULTURE URINE (12/21/2017 10:09 PM CDT) Culture Urine No growth (<1,000 CFU/mL) ANTONIO 12/23/2017 9:[address] [facility] Urine URINE SPECIMEN OBTAINED BY CLEAN CATCH PROCEDURE / Unknown Collection / Unknown 12/21/2017 10:09 PM CDT 12/21/2017 10:33 PM CDT Gwen Lee MD LAB - MICROBIOLOGY O RDERABLES [facility] [address] [place] [address], [facility] [phone]
--- OUTSIDE RECORDS SUMMARY | 2024-10-13 01:49 | XMS_ITS | Clinical Summary ---
Author Organization [facility] Address [facility] [place] [address] Care Team Providers Care Model Maker Apprentice Name Role Phone Unavailable Primary Care Provider Unavailabl e Source Comments [facility],non-owned Affiliates and Associated Physician Practices is amultiple site organization consisting of ambulatory clinics and hospital sitesin [place], [place], [place] and [place]. This disclosure is being madepursuant to the Care Everywhere program and may not contain all information available regarding this patient. Last updated 18.[facility] Allergies Active Allergy Reactions Criticality Noted Date Comments Sulfa Drugs Rash Medium 12/21/2017 Topical sulfa Medications * Be aware that medications may not be up to date on this document. Alwaysverify current medications with the patient. Medication Sig Dispensed Refills Start Date End Date Status Vit-Fe Fumarate-FA ( VITAMIN) 28-0.8 MG tablet Take 1 tablet by mouth once daily Active raNITIdine (ZANTAC) 150 MG capsule Take 150 mg by mouth once daily as needed for Heartburn Active ibuprofen (MOTRIN) 600 MG tablet Take 600 mg by mouth every 6 hours as needed for Pain Active Active Problems Problem Noted Date Diagnosed Date Threatened labor 12/21/2017 Social History Tobacco Use Types Packs/Day Years Used Date Smoking Tobacco: Never Smokeless Tobacco: Never Tobacco Cessation:Counseling Given: No Alcohol Use Standard Drinks/Week Comments No 0 (1 standard drink = 0.6 oz pur e alcohol) Sex and Gender Information Value Date Recorded Sex Assigned at Female 10/07/2021 12:26 PM PRODUCE WEIGHER Gender Identity Female 10/07/2021 12:26 PM PRODUCE WEIGHER Sexual Orientation Not on file Last Filed [...] Mass Index 27.36 12/21/2017 9:22 PM CDT Plan of Treatment Health Maintenance Due Date Last Done Comments PAP SMEAR 1984 HIV SCREENING 11/14/1999 HEPATITIS C SCREENING 11/09/2002 DTAP/TDAP/TD VACCINES (1 - Tdap) 11/14/2003 HEPATITIS B VACCINE (1 of 3 - 19+ 3-dose series) 11/14/2003 COVID-19 VACCINE ( - 2023-2 5 season) 2024 INFLUENZA VACCINE (#1) 2024 DEPRESSION SCREENING 08/27/2024 ZOSTER VACCINE (1 of 2) 2034 HIB VACCINE Aged Out No longer eligi ble based on patient's age to complete this topic HPV VACCINE Aged Out No longer eligi ble based on patient's age to complete this topic MENINGOCOCCAL (Group B) VACCINE Aged Out No longer eligible based on patient's age to complete this topic MENINGOCOCCAL VACCINE Aged Out No kamaljit christian eligible based on patient's age to complete this topic PNEUMOCOCCAL VACCINE Aged Out No long er eligible based on patient's age to complete this topic Advance Directives * Full Code (Latest Code Status on File) Date Activated Date Inactivated Comments 12/21/2017 11:25 PM 12/23/2017 3:41 PM * Full Code Date Activated Date Inactivated Comments 12/21/2017 10:01 PM 12/21/2017 11:25 PM
--- OUTSIDE RECORDS SUMMARY | 2024-10-13 01:49 | XMS_ITS | Referral Summary ---
Author Organization [facility] [employer] Address [facility] [place] [address] Care Team Providers Care Display Mechanic Name Role Phone Unavailable Primary Care Provider Unavailabl e Source Comments [facility] [employer],non-owned Affiliates and Associated Physician Practices is amultiple site organization consisting of ambulatory clinics and hospital sitesin [place], [place], [place] and [place]. This disclosure is being madepursuant to the Care Everywhere program and may not contain all information available regarding this patient. Last updated 18.[facility] [employer] Allergies Active Allergy Reactions Criticality Noted Date [...] Sex Assigned at Female 10/07/2021 12:26 PM PARKING LOT LABORER Gender Identity Female 10/07/2021 12:26 PM PARKING LOT LABORER Sexual Orientation Not on file Last Filed [...] Mass Index 27.36 12/21/2017 9:22 PM CDT Functional Status Functional Status Response Date of Assess ment Is person deaf or have serious hearing difficult y? No 12/21/2017 Is person blind or have serious difficulty seein g? No 12/21/2017 Does person have serious dif ficulty walking/climbing stairs? No 12/21/2017 Does person have difficulty dressing/bathing? No 12/21/2017 Does person have difficulty doing errands alone? No 12/21/2017 Cognitive Status Response Date of Assessm ent Does person have difficulty concentrating/remembering/making decisions? No 12/21/2017 Plan of Treatment Not on file Advance Directives * Full Code (Latest Code Status on File) Date Activated Date Inactivated Comments 12/21/2017 11:25 PM 12/23/2017 3:41 PM * Full Code Date Activated Date Inactivated Comments 12/21/2017 10:01 PM 12/21/2017 11:25 PM
[2024-10-13 12:58] VITALS: BP 118/75; PULSE 59; RESP 18; TEMP 36.9; O2SAT 100
--- NOTE | 2024-10-13 13:00 | WPDANESEPPF ---
Anes - Initial Pre Proc Eval Procedure: Operation Date: 10/13/24 14:00 Proposed Procedures p Esophagogastroduodenoscopy - Zechariah Khan MD Date/Time: 10/13/24 13:00 Surgeon: Zechariah Khan MD Pre Op Diagnosis: epigastric pain, dysphagia Patient Data Age: 38 Gender: F Height: 1.63 m Weight: 59.1 kg Last Vital Signs Temp 98.5 F 10/13/24 12:58 Pulse 59 L 10/13/24 12:58 Resp 18 10/13/24 12:58 BP 118/75 10/13/24 12:58 Pulse Ox 100 10/13/24 12:58 O2 Del Method Room Air 10/13/24 12:58 Allergies Allergy/AdvReac Type Severity Reaction Status Date / Time bee venom protein (honey bee) Allergy Hives Verified 09/22/24 14:04 WASP VENOM Allergy Hives Uncoded 09/22/24 14:04 Home Medications ?Medication ?Instructions ?Recorded ?Confirmed ?Type pantoprazole 40 mg tablet,delayed 40 mg PO QAM #30 tabs 09/10/24 09/22/24 Rx release (Protonix) Patient hx anesthesia problems: none Family hx anesthesia problems: none Results Review: All pre-operative results and documents have been reviewed as part of the pre-operative evaluation. [facility] Past Medical History Medical History Change in bowel habits BMI 22.0-22.9, adult Abdominal pain Complete abdominal ultrasound 09/16/2024 was normal. Family History Family History Father Hypertension Heart disease Hypothyroid Obesity Grandparent Hypertension Heart disease Sibling Hypertension Obesity Alcoholism Asthma Hypothyroid Grandparent Cancer Hyperthyroidism Grandparent Cancer Mother Obesity Grandparent Alcoholism Social History Social History Smoking status: Never smoker Alcohol intake: current Alcohol use details: rarely Substance use: never Substance use type: does not use Gender identity (if verbalized by the patient): Male Spiritual care concerns: No Anes - Eval Final PreProcedure Day of Procedure 10/13/24 13:00 Patient weight: normal and thin Lungs: normal air movement Airway: Mallampati scale and special considerations (Recent crown placed. ) Neurological: alert and oriented Last oral intake: >/= 8 hours ASA classification: I Emergent: no Anesthetic plan: proceed Anesthesia type and monitoring: general GIVS and standard monitoring Results Review: All pre-operative results and documents have been reviewed as part of the pre-operative evaluation. Heatlthy, runner, no cp or sob w activity. Informed Consent: The patient's anesthetic plan and its attendant risks and benefits were discussed with the patient/family/POA. Questions were solicited and answers provided to the satisfaction of the patient/family/POA.
[2024-10-13] MEDS: LACTATED RINGERS 1,000 ML 150 ML IV CONT (13:14)
--- NOTE | 2024-10-13 13:34 | PM.HPGS ---
History of Present Illness History of Present Illness Consent: Risks, benefits, and alternatives have been discussed and questions answered. Patient agrees to proceed with procedure. Chief complaint: epigastric pain, dysphagia Narrative: Nkechi Wilder is a 38 year old female with intermittent epigastric pain, never had egd. Normal abd ultrasound. Review of Systems Review of Systems: All systems reviewed & are unremarkable except as noted in HPI and below PMFSH Past Medical History Medical History Change in bowel habits BMI 22.0-22.9, adult Abdominal pain Complete abdominal ultrasound 09/16/2024 was normal. Family History Family History Father Hypertension Heart disease Hypothyroid Obesity Grandparent Hypertension Heart disease Sibling Hypertension Obesity Alcoholism Asthma Hypothyroid Grandparent Cancer Hyperthyroidism Grandparent Cancer Mother Obesity Grandparent Alcoholism Social History Social History Smoking status: Never smoker Alcohol intake: current Alcohol use details: rarely Substance use: never Substance use type: does not use Gender identity (if verbalized by the patient): Male Spiritual care concerns: No Meds Home Medications and Allergies Home Medications ?Medication ?Instructions ?Recorded ?Confirmed ?Type pantoprazole 40 mg tablet,delayed 40 mg PO QAM #30 tabs 09/10/24 10/13/24 Rx release (Protonix) Allergies Allergy/AdvReac Type Severity Reaction Status Date / Time bacitracin (From Neosporin Allergy Rash Verified 10/13/24 13:16 ([id number])) bee venom protein (honey bee) Allergy Hives Verified 09/22/24 14:04 neomycin (From Neosporin Allergy Rash Verified 10/13/24 13:16 ([id number]-ekd-[id number])) polymyxin B (From Neosporin Allergy Rash Verified 10/13/24 13:16 ([id number]-[id number])) WASP VENOM Allergy Hives Uncoded 09/22/24 14:04 Vital Signs Vital Signs - 24 hr 10/13/24 12:58 Temperature 98.5 F Pulse Rate 59 L Respiratory Rate 18 Blood Pressure 118/75 Pulse Oximetry 100 Oxygen Delivery Room Air Exam Const: General: comfortable and no acute distress HENMT: Face/Nose/Sinus: Normal nares present Eyes: General: appearance normal, both eyes and all related structures Neck: Neck: no JVD Resp: Auscultation: clear to auscultation bilaterally Cardio: Rate: regular rate Rhythm: regular rhythm GI: Inspection: non-distended GI Palp: Yes Soft to palpation Skin: General skin exam: normal color Neuro: General: gait normal Speech: normal speech Extrem: General: normal to inspection Psych: Mental Status: mental status grossly normal Assessment and Plan Assessment and plan (1) Abdominal pain: Qualifiers: Abdominal location: generalized Qualified Code(s): R10.84 - Generalized abdominal pain Code(s): R10.9 - Unspecified abdominal pain Status: Acute Assessment and Plan: egd with bx
[2024-10-13 13:37] LABS: BEDSIDEPREGUCG Negative (Negative)
[2024-10-13 13:49] VITALS: BP 105/68; PULSE 74; RESP 24; O2SAT 99
[2024-10-13 13:59] VITALS: BP 117/64; PULSE 69; RESP 16; O2SAT 98
[2024-10-13 14:09] VITALS: BP 113/79; PULSE 58; RESP 14; O2SAT 100
== END 2024-10-13 14:15 | disposition home or self-care (01) ==
PROVIDERS: Anesthesiology; PCP Family Medicine; Referring Provider Family Medicine; Visit Provider Internal Medicine Gastroenterology
PROC: 0DJ08ZZ Inspection of Upper Intestinal Tract, Via Natural or Artificial Opening Endoscopic (ICD-10-PCS; CPT 43239; principal; 2024-10-13 14:00)
DX: R10.13 Epigastric pain (principal); R13.10 Dysphagia, unspecified; R10.84 Generalized abdominal pain; Z80.9 Family history of malignant neoplasm, unspecified; Z82.49 Family history of ischemic heart disease and other diseases of the circulatory system
CPT/HCPCS: 43239; 88305; J2003; J2704; J7120

== ENCOUNTER 2024-12-18 03:48 | Day surgery (SDC) | payer BC, SELFPAY ==
[2024-12-12 12:17] VITALS: BMI 28.4
--- OUTSIDE RECORDS SUMMARY | 2024-12-18 03:51 | XMS_ITS | Clinical Summary ---
Author Organization [facility] Address [address] [place] [address] Care Team Providers Care Library Historian Name Role Phone Unavailable Primary Care Provider Unavailabl e Source Comments [facility],non-owned Affiliates and Associated Physician Practices is amultiple site organization consisting of ambulatory clinics and hospital sitesin [place], [place], [place] and [place]. This disclosure is being madepursuant to the Care Everywhere program and may not contain all information available regarding this patient. Last updated 18.[facility] Allergies Active Allergy Reactions Criticality Noted Date Comments Sulfa Drugs Rash Medium 12/21/2017 Topical sulfa Medications * Be aware that medications may not be up to date on this document. Alwaysverify current medications with the patient. Vit-Fe Fumarate-FA ( VITAMIN) 28-0.8 MG tablet [...] drink = 0.6 oz pur e alcohol) Comments No Sex and Gender Information Value Date Recorded Sex Assigned at Female 10/07/2021 12:26 PM BEEF CATTLE FARM MANAGER Legal Sex Female 9:20 PM CDT Gender Identity Female 10/07/2021 12:26 PM BEEF CATTLE FARM MANAGER Sexual Orientation Not on file Last Filed [...] Health Maintenance Due Date Last Done Comments LIPID TESTING 1984 MAMMOGRAM 1984 PAP SMEAR 1984 HIV SCREENING 11/14/1999 HEPATITIS C SCREENING 11/09/2002 DTAP/TDAP/TD VACCINES (1 - Tdap) 11/14/2003 HEPATITIS B VACCINE (1 of 3 - 19+ 3-dose series) 11/14/2003 COVID-19 VACCINE (1 - 2023-2 5 season) 2024 DEPRESSION SCREENING 08/27/2024 INFLUENZA VACCINE (Season Ended) 2025 ZOSTER VACCINE (1 of 2) 2034 HIB VACCINE Aged Out No longer eligi ble based on patient's age to complete this topic HPV VACCINE Aged Out No longer eligi ble based on patient's age to complete this topic MENINGOCOCCAL (Group B) VACC INE SHARED DECISION-MAKING Aged Out No longer eligibl e based on patient's age to complete this topic MENINGOCOCCAL GROUPS A/C/Y/W VACCINE Aged Out No longer eligible b ased on patient's age to complete this topic PNEUMOCOCCAL VACCINE Aged Out No long er eligible based on patient's age to complete this topic Insurance [place] Advance Directives * Full Code (Latest Code Status on File) Date Activated Date Inactivated Comments 12/21/2017 11:25 PM 12/23/2017 3:41 PM * Full Code Date Activated Date Inactivated Comments 12/21/2017 10:01 PM 12/21/2017 11:25 PM
--- OUTSIDE RECORDS SUMMARY | 2024-12-18 03:51 | XMS_ITS | Clinical Summary ---
Author Organization [facility] Address [address] [place] [id number] Care Team Providers Care Building Admin Name Role Phone Unavailable Primary Care Provider [...] 2014 COVID-19 Vaccine (2023-2 5 season) 2024 Mammogram Screening 2024 HPV Vaccines Aged Out No longer eligi ble based on patient's age to complete this topic Meningococcal B Vaccine Aged Out No l onger eligible based on patient's age to complete this topic Meningococcal Vaccine Aged Out No kamaljit christian eligible based on patient's age to complete this topic Pneumococcal Vaccine: Pediat rics (0 to 5 Years) and At-Risk Patients (6 to 49 Years) Aged Out No longer eligible b ased on patient's age to complete this topic RSV Immunizations Under 20 Months Aged Out No longer eligible based on patient's age to complete this topic
--- OUTSIDE RECORDS SUMMARY | 2024-12-18 03:51 | XMS_ITS | Referral Summary ---
Author Organization [facility] Address [address] [place] [address] Care Team Providers Care Mergers And Acquisitions Attorney Name Role Phone Nathanael Victoria MD Primary Care Provider [phone] Allergies Active Allergy Reactions Criticality Noted Date Comments Other Rash,Itching Medium 12/21/2017 Topical sulfa Medications No known medications Active Problems Problem Noted Date Diagnosed Date Dizziness 08/10/2021 Assessment & Plan (08/14/2021 12:21 PM TRUST OPERATIONS ASSISTANT): Patient reports a positive family history of [...] 07/20/2021 Assessment & Plan (07/20/2021 6:10 PM TRUST OPERATIONS ASSISTANT): Week has been ongoing for 2-3 weeks. [...] the office or go to the ER 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 file Last Filed Vital Signs Vital Sign Reading Time Taken Comments Blood Pressure 120/78 07/28/2022 10:05 AM TRUST OPERATIONS ASSISTANT Pulse 76 07/28/2022 10:05 AM TRUST OPERATIONS ASSISTANT Temperature 36.9 C (98.5 F) 11/04/2021 4:26 PM TRUST OPERATIONS ASSISTANT Respiratory Rate 16 11/04/2021 4:26 PM TRUST OPERATIONS ASSISTANT Oxygen Saturation 97% 07/28/2022 10:05 AM TRUST OPERATIONS ASSISTANT Inhaled Oxygen Concentration - - Weight 56.2 kg (124 lb) 10/06/2022 3:22 PM TRUST OPERATIONS ASSISTANT Height 162.6 cm (5' 4 ) 10/06/2022 3:22 PM TRUST OPERATIONS ASSISTANT Body Mass Index 21.28 10/06/2022 3:22 PM TRUST OPERATIONS ASSISTANT Plan of Treatment Not on file Procedures Procedure Name Priority Date/Time Associated Diagnosis Comments PAP SMEAR WITH HPV Routine 09/27/2018 from Last 3 Months or Most Recently Relevant to Health Maintenance Results * PAP SMEAR WITH HPV (09/27/2018) Pap smear Normal Historical Provider MD HEALTH MAINTENANCE Final Result from Last 3 Months or Most Recently Relevant to Health Maintenance Insurance [facility] [employer] Address: [facility] [id number] [place] [id number] [facility] [employer] Address: [facility] [address] [place] [address] [employer] [employer] Address: [facility] [id number] [place] [address] Care Teams Mergers And Acquisitions Attorney Relationship Specialty Start Date End Date Nathanael Victoria MD PCP - General Internal Medicine 07/28/22
--- OUTSIDE RECORDS SUMMARY | 2024-12-18 03:51 | XMS_ITS | Clinical Summary ---
Author Organization [facility] Address [address] [place] [address] Care Team Providers Care Marketing Research Coordinator Name Role Phone Nathanael Victoria MD Primary Care Provider [phone] Allergies Active Allergy Reactions Criticality Noted Date Comments Other Rash,Itching Medium 12/21/2017 Topical sulfa Medications No known medications Active Problems Problem Noted Date Diagnosed Date Dizziness 08/10/2021 Assessment & Plan (08/14/2021 12:21 PM COORDINATE MEASURING MACHINE OPERATOR): Patient reports a positive family history of [...] 07/20/2021 Assessment & Plan (07/20/2021 6:10 PM COORDINATE MEASURING MACHINE OPERATOR): Week has been ongoing for 2-3 weeks. [...] the office or go to the ER [facility] health care 06/11/2021 Assessment & Plan (06/11/2021 [...] 08/25/2019 Assessment & Plan (08/25/2019 12:35 PM COORDINATE MEASURING MACHINE OPERATOR): Will try topicort cream BID, if no [...] Maternal Grandfather Bucky Eugenio Cancer Maternal Grandmother Amanda Becker Cervical cancer Maternal Grandmother Amanda Becker [...] Frequency of Alcohol Consumption 2-4 times a sun04/23/2019 Average Number of Drinks 1 or 2 [...] on file Legal Sex Female 11:00 AM COORDINATE MEASURING MACHINE OPERATOR Gender Identity Female 02/19/2022 6:47 PM CDT Sexual Orientation Straight 03/16/2021 1: 35 PM CDT 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 file Obstetrics History Last Filed Vital Signs Vital Sign Reading Time Taken Comments Blood Pressure 120/78 07/28/2022 10:05 AM COORDINATE MEASURING MACHINE OPERATOR Pulse 76 07/28/2022 10:05 AM COORDINATE MEASURING MACHINE OPERATOR Temperature 36.9 C (98.5 F) 11/04/2021 4:26 PM COORDINATE MEASURING MACHINE OPERATOR Respiratory Rate 16 11/04/2021 4:26 PM COORDINATE MEASURING MACHINE OPERATOR Oxygen Saturation 97% 07/28/2022 10:05 AM COORDINATE MEASURING MACHINE OPERATOR Inhaled Oxygen Concentration - - Weight 56.2 kg (124 lb) 10/06/2022 3:22 PM COORDINATE MEASURING MACHINE OPERATOR Height 162.6 cm (5' 4 ) 10/06/2022 3:22 PM COORDINATE MEASURING MACHINE OPERATOR Body Mass Index 21.28 10/06/2022 3:22 PM COORDINATE MEASURING MACHINE OPERATOR Plan of Treatment Health Maintenance Due Date Last Done Comments Breast Cancer Screening-Mammogram 1984 Hepatitis C Screening 1984 Hepatitis B Screening 2002 Cervical Cancer Screening 09/27/2019 09/27/2018 Depression Screening 07/28/2023 07/28/2022, 06/09/2021, 02/04/2021, Additional history exists Regular Well Visit/Exam 18-64 07/28/2023 07/28/2022, 06/09/2021, 04/23/2019, Additional history exists Covid-19 Vaccine () 04/27/2024 05/25/2021, 10/07/2020, 09/16/2020 Influenza Vaccine (Season Ended) 2025 05/31/2022, 06/04/2021, 05/27/2019, Additional history exists DTaP/Tdap/Td Vaccine [...] Most Recently Relevant to Health Maintenance Insurance [facility] [employer] Address: [facility] [address] [place] [address] [facility] EMPL[employer]EE HEALTH PLANS Address: [facility] [id number] [place] [address] [employer] [facility] [employer] [employer] Address: [facility] [id number] [place] [address] Care Teams Marketing Research Coordinator Relationship Specialty Start Date End Date Nathanael Victoria MD PCP - General Internal Medicine 07/28/22
[2024-12-18 10:28] VITALS: BP 122/83; PULSE 62; RESP 12; TEMP 36.2; O2SAT 100; BMI 19.9
[2024-12-18] MEDS: LACTATED RINGERS 1,000 ML 150 ML IV CONT (10:40)
--- NOTE | 2024-12-18 10:40 | PM.HPGS ---
History of Present Illness History of Present Illness Consent: Risks, benefits, and alternatives have been discussed and questions answered. Patient agrees to proceed with procedure. Chief complaint: Change in bowel habit Narrative: Nkechi Wilder is a 39 year old female here for first colonoscopy, intermittent abdominal pain (had normal EGD) and change bowel pattern Review of Systems Review of Systems: All systems reviewed & are unremarkable except as noted in HPI and below PMFSH Past Medical History Medical History (Updated 11/26/24 @ 08:28 by Manpreet Faria MD) Change in bowel habits (~2023) Decreased caliber of stools BMI 22.0-22.9, adult Abdominal pain Complete abdominal ultrasound 09/16/2024 was normal. EGD normal 10/13/2024 with normal biopsies. Family History Family History Father Hypertension Heart disease Hypothyroid Obesity Grandparent Hypertension Heart disease Sibling Hypertension Obesity Alcoholism Asthma Hypothyroid Grandparent Cancer Hyperthyroidism Grandparent Cancer Mother Obesity Grandparent Alcoholism Social History Social History Smoking status: Never smoker Alcohol intake: never Alcohol use details: rarely Substance use: never Substance use type: does not use Living arrangements: with family Additional living arrangements comments: kids and Gender identity (if verbalized by the patient): Male Spiritual care concerns: No Meds Home Medications and Allergies Home Medications ?Medication ?Instructions ?Recorded ?Confirmed ?Type No Home Medications 11/26/24 12/12/24 History Allergies Allergy/AdvReac Type Severity Reaction Status Date / Time bacitracin (From Neosporin Allergy Rash Verified 12/18/24 10:27 ([id number])) bee venom protein (honey bee) Allergy Hives Verified 12/18/24 10:27 neomycin (From Neosporin Allergy Rash Verified 12/18/24 10:27 ([id number])) polymyxin B (From Neosporin Allergy Rash Verified 12/18/24 10:27 (cqa-[id number])) WASP VENOM Allergy Hives Uncoded 12/18/24 10:27 Vital Signs Vital Signs - 24 hr 12/18/24 10:28 Temperature 97.1 F L Pulse Rate 62 Respiratory Rate 12 Blood Pressure 122/83 Pulse Oximetry 100 Oxygen Delivery Room Air Exam Const: General: comfortable and no acute distress HENMT: Face/Nose/Sinus: Normal nares present Eyes: General: appearance normal, both eyes and all related structures Neck: Neck: no JVD Resp: Auscultation: clear to auscultation bilaterally Cardio: Rate: regular rate Rhythm: regular rhythm GI: Inspection: non-distended GI Palp: Yes Soft to palpation Skin: General skin exam: normal color Neuro: General: gait normal Speech: normal speech Extrem: General: normal to inspection Psych: Mental Status: mental status grossly normal Assessment and Plan Assessment and plan (1) Change in bowel habits: Onset Date: ~2023 Code(s): R19.4 - Change in bowel habit Status: Acute Assessment and Plan: colonoscopy (2) Abdominal pain: Qualifiers: Abdominal location: generalized Qualified Code(s): R10.84 - Generalized abdominal pain Code(s): R10.9 - Unspecified abdominal pain Status: Acute
--- NOTE | 2024-12-18 10:49 | WPDANESEPPF ---
Anes - Initial Pre Proc Eval Procedure: Operation Date: 12/18/24 11:30 Proposed Procedures p Colonoscopy - Zechariah Khan MD Date/Time: 12/18/24 10:49 Surgeon: Zechariah Khan MD Pre Op Diagnosis: Change in bowel habit Patient Data Age: 39 Gender: F Height: 1.68 m Weight: 56 kg Last Vital Signs Temp 97.1 F L 12/18/24 10:28 Pulse 62 12/18/24 10:28 Resp 12 12/18/24 10:28 BP 122/83 12/18/24 10:28 Pulse Ox 100 12/18/24 10:28 O2 Del Method Room Air 12/18/24 10:28 Allergies Allergy/AdvReac Type Severity Reaction Status Date / Time bacitracin (From Neosporin Allergy Rash Verified 12/18/24 10:27 (zdf-jhm-utodi)) bee venom protein (honey bee) Allergy Hives Verified 12/18/24 10:27 neomycin (From Neosporin Allergy Rash Verified 12/18/24 10:27 ([id number]-[id number])) polymyxin B (From Neosporin Allergy Rash Verified 12/18/24 10:27 (gdy-idn-yugjn)) WASP VENOM Allergy Hives Uncoded 12/18/24 10:27 Home Medications ?Medication ?Instructions ?Recorded ?Confirmed ?Type No Home Medications 11/26/24 12/12/24 History Patient hx anesthesia problems: none Family hx anesthesia problems: none Results Review: All pre-operative results and documents have been reviewed as part of the pre-operative evaluation. [facility] Past Medical History Medical History (Updated 11/26/24 @ 08:28 by Manpreet Faria MD) Change in bowel habits (~2023) Decreased caliber of stools BMI 22.0-22.9, adult Abdominal pain Complete abdominal ultrasound 09/16/2024 was normal. EGD normal 10/13/2024 with normal biopsies. Family History Family History Father Hypertension Heart disease Hypothyroid Obesity Grandparent Hypertension Heart disease Sibling Hypertension Obesity Alcoholism Asthma Hypothyroid Grandparent Cancer Hyperthyroidism Grandparent Cancer Mother Obesity Grandparent Alcoholism Social History Social History Smoking status: Never smoker Alcohol intake: never Alcohol use details: rarely Substance use: never Substance use type: does not use Living arrangements: with family Additional living arrangements comments: kids and Gender identity (if verbalized by the patient): Male Spiritual care concerns: No Anes - Eval Final PreProcedure Day of Procedure 12/18/24 10:49 Patient weight: normal Heart: regular rate and rhythm Lungs: clear to auscultation Airway: Mallampati scale class II Neurological: alert and oriented Last oral intake: >/= 8 hours ASA classification: II Emergent: no Anesthetic plan: proceed Anesthesia type and monitoring: general GIVS and standard monitoring Results Review: All pre-operative results and documents have been reviewed as part of the pre-operative evaluation. Informed Consent: The patient's anesthetic plan and its attendant risks and benefits were discussed with the patient/family/POA. Questions were solicited and answers provided to the satisfaction of the patient/family/POA.
[2024-12-18 10:55] VITALS: BP 108/57; PULSE 58; RESP 18; O2SAT 100
[2024-12-18 10:56] LABS: BEDSIDEPREGUCG Negative (Negative)
[2024-12-18 11:05] VITALS: BP 106/60; PULSE 58; RESP 18; O2SAT 100
[2024-12-18 11:15] VITALS: BP 110/72; PULSE 60; RESP 16; O2SAT 100
== END 2024-12-18 11:18 | disposition home or self-care (01) ==
PROVIDERS: PCP Family Medicine; Referring Provider Family Medicine; Visit Provider Internal Medicine Gastroenterology
PROC: 0DJD8ZZ Inspection of Lower Intestinal Tract, Via Natural or Artificial Opening Endoscopic (ICD-10-PCS; CPT 45378; principal; 2024-12-18 11:30)
DX: R10.84 Generalized abdominal pain (principal); R19.4 Change in bowel habit
CPT/HCPCS: 45378; J2704; J7120

== ENCOUNTER 2025-02-16 07:21 | Outpatient (CLI) | payer BC, SELFPAY ==
--- NOTE | ~2025-02-16 | MM_ITS ---
EXAMINATION: MM screening cameron BI w liyah HISTORY: Screening mammogram TECHNIQUE: Craniocaudal and mediolateral oblique 3-D tomosynthesis images were obtained and synthetic 2-D images were generated. CAD analysis was submitted and interpreted. COMPARISON: No prior mammogram is available for comparison at this institution. BREAST PARENCHYMAL COMPOSITION:Dense: The breasts are extremely dense, which lowers the sensitivity o f mammography. FINDINGS: No suspicious mass, calcification, or architectural distortion are identified in either nisa ast to suggest malignancy. There has been no suspicious interval change. IMPRESSION: No mammographic evidence of malignancy. Recommend routine screening mammography in one year. BI-RADS Category 1: Negative Reviewed, dictated and finalized at location .
== END 2025-02-16 07:22 | disposition home or self-care (01) ==
LOC: CHSIMG 07:24
PROVIDERS: PCP Family Medicine; Visit Provider Obstetrics & Gynecology
DX: Z12.31 Encounter for screening mammogram for malignant neoplasm of breast (principal)
CPT/HCPCS: 77063; 77067

== ENCOUNTER 2025-08-14 15:27 | Emergency (ER) | payer BC, SELFPAY ==
--- NOTE | ~2025-08-14 | XR_ITS ---
EXAMINATION: XR chest 2V, 08/14/2025 16:22 [employer] HISTORY: COUGH w/l/g temp X 4 WKS, non smoker COMPARISON: No comparisons available. Technique: 2 views obtained. Findings: The lungs are clear, no effusion. No pneumothorax. Heart is normal size. Mediastinal and hilar contours are within normal limits. Bony thorax no acute abnormality. Impression: No acute cardiopulmonary abnormality. Reviewed, dictated and finalized at location P. [employer] Impression: No acute cardiopulmonary abnormality.
[2025-08-14 15:44] VITALS: BP 112/80; PULSE 66; RESP 16; TEMP 36.9; O2SAT 100
--- NOTE | 2025-08-14 16:34 | ED_ITS ---
HPI - URI/Sore Throat General Chief Complaint: Upper Respiratory Infection Stated Complaint: Coughing [id number] Time Seen by Provider: 08/14/25 16:35 Source: patient Mode of arrival: ambulatory Limitations: no limitations History of Present Illness HPI Narrative: 39 yo female presented for c/o cough x4 weeks. Endorses cough is frequent and occasionally productive. Says symptoms started with URI symptoms which have improved. Pt has taken benzonatate, and albuterol inhaler along with otc meds. 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 Denies sob or wheezing, n/v/d/f/c. Related Data Allergies Allergy/AdvReac Type Severity Reaction Status Date / Time bacitracin (From Neosporin Allergy Rash Verified 08/14/25 16:16 ([id number])) bee venom protein (honey bee) Allergy Hives Verified 08/14/25 16:16 neomycin (From Neosporin Allergy Rash Verified 08/14/25 16:16 ([id number])) polymyxin B (From Neosporin Allergy Rash Verified 08/14/25 16:16 ([id number])) WASP VENOM Allergy Hives Uncoded 12/18/24 10:27 Review of Systems Review of Systems: CONSTITUTIONAL: Denies body aches, fever, chills, or sweats. EYES: Denies visual changes, redness, or discharge. ENT: Denies rhinorrhea, congestion, sore throat, or otalgia. CARDIOVASCULAR: Denies chest pain, palpitations, or edema. RESPIRATORY: Reports cough, denies sob, wheezing. GASTROINTESTINAL: Denies abdominal pain, nausea, vomiting, or diarrhea. SKIN: Denies rash, itching, or wounds. MUSCULOSKELETAL: Denies back pain, joint pain, or myalgia. NEUROLOGIC: Denies headache, numbness, tingling, or weakness. PSYCH: Denies depression or anxiety. All systems reviewed & are unremarkable except as noted in HPI and below PMFSH Past Medical History Medical History Breast cancer screening by mammogram normal mammogram 02/16/2025. Change in bowel habits (~2023) Decreased caliber of stools.Normal colonoscopy 12/18/2024 with recheck in 10 years. BMI 22.0-22.9, adult Abdominal pain Complete abdominal ultrasound 09/16/2024 was normal. EGD normal 10/13/2024 with normal biopsies. Family History Family History Father Hypertension Heart disease Hypothyroid Obesity Grandparent Hypertension Heart disease Sibling Hypertension Obesity Alcoholism Asthma Hypothyroid Grandparent Cancer Hyperthyroidism Grandparent Cancer Mother Obesity Grandparent Alcoholism Social History Social History Smoking status: Never smoker Alcohol intake: never Alcohol use details: rarely Substance use: never Substance use type: does not use Living arrangements: with family Additional living arrangements comments: kids and Gender identity (if verbalized by the patient): Male Spiritual care concerns: No Comments At time of signature, I have reviewed and agree with nursing past medical, surgical, social and family history unless otherwise noted. Please see nursing chart for further information. There is no relevant family history pertinent to the presenting complaint Exam Narrative: GENERAL: Well-appearing, in no acute distress. EYES: No redness or drainage. Conjunctivae normal. ENT: Mucous membranes pink and moist. No rhinorrhea. TMs normal bilaterally. Throat normal. Uvula midline. NECK: Normal AROM. Supple. CHEST: No respiratory distress. lungs clear to all walsh. frequent harsh machine taper cough. HEART: Regular rate and rhythm. No murmur appreciated. ABDOMEN: Soft, nontender, nondistended, normal active bowel sounds. EXTREMITIES: Normal range of motion. No edema. SKIN: Warm, dry, no rash. Capillary refill normal. Normal skin turgor. NEURO: Alert and oriented x3. Gait steady. Course Course Level of Care: Express Care Visit Vital Signs Vital signs: Vital Signs Temperature 98.4 F 08/14/25 15:44 Pulse Rate 66 08/14/25 15:44 Respiratory Rate 16 08/14/25 15:44 Blood Pressure 112/80 08/14/25 15:44 Pulse Oximetry 100 08/14/25 15:44 Temperature 98.4 F 08/14/25 15:44 Pulse Rate 66 08/14/25 15:44 Respiratory Rate 16 08/14/25 15:44 Blood Pressure 112/80 08/14/25 15:44 Pulse Oximetry 100 08/14/25 15:44 Oxygen Delivery Room Air 08/14/25 15:50 MDM MDM Narrative Medical decision making narrative: Discussed physical exam findings and reviewed RX. Advised supportive measures and signs/symptoms to go to the ER. Pt is appropriate for outpt treatment and f/u. Differential Diagnosis Differential Diagnosis: Influenza, covid, sinusitis, bronchitis, pneumonia, strep pharyngitis, URI Imaging Data Radiologist's impression: ITS Impressions Chest X-Ray 08/14/25 16:32 Impression: No acute cardiopulmonary abnormality. Discharge Plan Discharge Clinical Impression: Bronchitis Patient Disposition: Home Condition: Stable Instructions: Antibiotic Form, Acute Bronchitis (ED) Additional Instructions: Take medication as directed (you have inhaler, cough medications at home) over the counter Cough syrup may cause drowsiness; avoid driving or take it at night time. Tylenol every 8 hours as needed for pain Symptomatic treatment includes: rest, fluids, and increase humidity of the air at home. Follow up with your primary care provider as needed in 1 week Go to the ER for worsening symptoms or concerns Patient Language: Khmer Prescriptions: New prednisone 20 mg tablet 20 mg PO DAILY Qty: 18 0RF Rx Instructions: take 3 tablets daily for 3 days, then 2 tablets daily for 3 days then 1 tablet daily for 3 days amoxicillin-pot clavulanate 875-125 mg tablet 1 tablet PO Q12H 7 Days Qty: 14 0RF Follow-up/Referrals: Manpreet Faria MD [Primary Care Provider, Family Practice]
== END 2025-08-14 16:45 | disposition home or self-care (01) ==
PROVIDERS: Emergency Provider Nurse Practitioner Family; PCP Family Medicine
DX: J40 Bronchitis, not specified as acute or chronic (principal)
CPT/HCPCS: 71046; 99213; G0463